=== PATIENT | female | born 2005 | race African-American/Black ===

== ENCOUNTER 2023-09-12 11:33 | Emergency (ER) | payer MEDICAID ==
[~2023-09-12] VITALS: Ht 167.6 cm; Wt 91.0 kg
[2023-09-12 12:02] VITALS: O2SAT 100
[2023-09-12 12:51] LABS: CLARITY URINE CLOUDY (CLEAR); COLOR URINE RED (YELLOW); GLUCOSE URINE NEGATIVE (NEGATIVE); KETONES URINE NEGATIVE (NEGATIVE); LEUKOCYTE ESTERASE URINE 1+ (NEGATIVE); NITRITE URINE NEGATIVE (NEGATIVE); OCCULT BLOOD URINE 3+ (NEGATIVE); PH URINE 5.5 (4.5-8.0); PROTEIN URINE 2+ (NEGATIVE); SPECIFIC GRAVITY URINE 1.033 (1.005-1.030); UCG SCREEN NEGATIVE; UROBILINOGEN URINE 0.2 E.U./dL (0.2-1.0)
[2023-09-12 12:55] LABS: BASOPHILS % 0.9 % (0.0-2.0); EOSINOPHILS % 0.9 % (0.0-5.0); HEMATOCRIT. 40.2 % (36.0-48.0); HEMOGLOBIN. 13.1 g/dL (12.0-16.0); LYMPHOCYTES % 30.1 % (20.0-50.0); MEAN CORPUSCULAR HEMOGLOBIN 27.5 pg (28.0-32.0); MEAN CORPUSCULAR HGB CONC 32.7 g/dL (31.0-37.0); MEAN PLATELET VOLUME 9.2 fl (7.4-10.4); MONOCYTES % 7.9 % (2.0-8.0); NEUTROPHILS % 60.2 % (40.0-76.0); PLATELET 291 x1000/uL (130-400); RED BLOOD CELL COUNT 4.78 mill/uL (4.2-5.4); RED CELL DISTRIBUTION WIDTH 14.2 % (11.6-14.6); WHITE BLOOD COUNT 5.3 x1000/uL (4.5-11.0)
[2023-09-12 12:59] LABS: CHLORIDE 105 mEq/L (98-107); POTASSIUM 4.1 mEq/L (3.5-5.1); SODIUM 138 mEq/L (136-145)
[2023-09-12 13:00] LABS: CARBON DIOXIDE 26 mEq/L (21-32)
[2023-09-12 13:05] LABS: CREATININE 0.7 mg/dL (0.6-1.0); GLUCOSE 80 mg/dL (70-105)
[2023-09-12 13:06] LABS: UREA NITROGEN BLOOD 9 mg/dL (9-23)
[2023-09-12 13:07] LABS: ALANINE AMINOTRANSFERASE 19 IU/L (10-49); ALBUMIN 4.9 g/dL (3.2-4.8); ASPARTATE AMINOTRANSFERASE 17 IU/L (<34)
[2023-09-12 13:08] LABS: BILIRUBIN TOTAL 0.7 mg/dL (0.1-1.0); PROTEIN TOTAL 8.2 g/dL (6.0-8.3)
[2023-09-12 13:56] LABS: RBC URINE TNTC /hpf (0-2); SQUAMOUS EPITHELIAL CELL URINE 2+ /lpf (RARE/1+); WBC URINE 0-2 /hpf (0-2)
[2023-09-12 13:57] LABS: BACTERIA URINE TRACE
[2023-09-12 16:55] LABS: HCG SCREEN NEGATIVE
[2023-09-12 20:44] VITALS: BP 152/98; PULSE 78; RESP 18; TEMP 98.8
== END 2023-09-12 20:46 | disposition home or self-care (01) ==
LOC: ER 11:33
DX: N83.201 Unspecified ovarian cyst, right side (principal)
CPT/HCPCS: 36415; 76830; 76856; 80053; 81003; 81025; 84703; 85025; 99284

== ENCOUNTER 2024-02-12 05:55 | Emergency (ER) | payer SELFPAY ==
[~2024-02-12] VITALS: Ht 170.2 cm; Wt 95.0 kg
[2024-02-12 06:12] VITALS: O2SAT 99
[2024-02-12] MEDS: SODIUM CHLORIDE 0.9% 1,000 ML IV ONE (06:31)
[2024-02-12] MEDS: ACETAMINOPHEN 325MG TABLET PO STA (06:41)
[2024-02-12] MEDS: IBUPROFEN 600MG TABLET PO STA (06:42)
[2024-02-12 06:52] LABS: BASOPHILS % 0.4 % (0.0-2.0); EOSINOPHILS % 1.5 % (0.0-5.0); HEMATOCRIT. 39.9 % (36.0-48.0); HEMOGLOBIN. 13.5 g/dL (12.0-16.0); LYMPHOCYTES % 9.9 % (20.0-50.0); MEAN CORPUSCULAR HGB CONC 33.7 g/dL (31.0-37.0); MEAN CORPUSCULAR VOLUME 83.1 fL (81.0-99.0); MEAN PLATELET VOLUME 9.2 fl (7.4-10.4); MONOCYTES % 10.1 % (2.0-8.0); NEUTROPHILS % 78.1 % (40.0-76.0); PLATELET 230 x1000/uL (130-400); RED BLOOD CELL COUNT 4.81 mill/uL (4.2-5.4); RED CELL DISTRIBUTION WIDTH 14.1 % (11.6-14.6); WHITE BLOOD COUNT 6.8 x1000/uL (4.5-11.0)
[2024-02-12 06:54] LABS: CHLORIDE 105 mEq/L (98-107); SODIUM 136 mEq/L (136-145)
[2024-02-12 06:55] LABS: CALCIUM 9.9 mg/dL (8.7-10.4); CARBON DIOXIDE 22 mEq/L (21-32)
[2024-02-12 07:00] LABS: CREATININE 0.9 mg/dL (0.6-1.0); GLUCOSE 104 mg/dL (70-105); UREA NITROGEN BLOOD 8 mg/dL (9-23)
[2024-02-12 08:49] VITALS: BP 104/54; PULSE 87; RESP 16; TEMP 37.50300; O2SAT 99
== END 2024-02-12 09:03 | disposition home or self-care (01) ==
LOC: ER 05:55
DX: J10.1 Influenza due to other identified influenza virus with other respiratory manifestations (principal); Z98.890 Other specified postprocedural states; Z20.822 Contact with and (suspected) exposure to COVID-19
CPT/HCPCS: 99285; 96360; 87426; 80048; 85025; 87804 ×2; 36415; J7030

== ENCOUNTER 2024-08-07 21:03 | Emergency (ER) | payer OTHER ==
[~2024-08-07] VITALS: Ht 167.6 cm; Wt 87.0 kg
[2024-08-07 21:09] VITALS: TEMP 36.8; O2SAT 100
[2024-08-07] MEDS: KETOROLAC 15MG/ML VIAL IM ONE (22:06)
[2024-08-07] MEDS: TETANUS, DIPHTHERIA, PERTUSSIS VAC/PF 0.5ML (>10YR OLD) IM ONE (22:07)
[2024-08-07] MEDS: BACITRACIN ZINC OINT UDPKT TOP ONE (22:08)
[2024-08-07] MEDS: LIDOCAINE HCL/PF 1% 10 MG/ML 5ML VIAL INFIL ONE (22:08)
[2024-08-07] MEDS ORDERED: CEPH500C2 MT (23:21)
[2024-08-07] MEDS ORDERED: NAPR-1176 MT (23:21)
[2024-08-07] MEDS ORDERED: SULF1TAB48 MT (23:21)
[2024-08-07 23:54] VITALS: BP 115/80; PULSE 89; RESP 14; O2SAT 97
== END 2024-08-07 23:54 | disposition home or self-care (01) ==
LOC: ER 21:03
DX: L02.215 Cutaneous abscess of perineum (principal); Z79.899 Other long term (current) drug therapy; Z98.890 Other specified postprocedural states
CPT/HCPCS: 81025; 90715; 56405; 90471; 96372; 99284; J1885; J2003; Z7610 ×3; 10060